=== PATIENT | female | born 1950 | race Hispanic/Latino ===

== ENCOUNTER → 2017-04-17 | Outpatient (CLI) | payer SELFPAY ==
[~2017-04-17] MED LIST: PANTOPRAZOLE SO40 MG PO; SINCALIDE 3 MCG/VIAL INJ ONE
--- NOTE | 2017-04-17 09:57 | Diagnostic Imaging Report ---
PROCEDURE:US GALLBLADDER COMPARISON:None. INDICATIONS:UPPER ABD PAIN TECHNIQUE: Kamara-scale and color doppler transverse and longitudinal images of the right upper quadrant of the abdomen were obtained. FINDINGS: Liver: 12.8 cm in right mid-clavicular line. Diffusely increased parenchymal echogenicity. No masses. Main portal vein: 0.8 cm in caliber. Hepatopedal flow. Gallbladder: 0.2 cm intraluminal echogenic structure without shadowing. No shadowing calculus, wall thickening, or pericholecystic fluid. Common Bile Duct: 0.5 cm in caliber. Sonographic Messina's sign: Reported as negative. Right kidney: 10.8 cm. Normal renal cortical echogenicity. No solid masses or hydronephrosis. Pancreas: The visualized portions are unremarkable. Inferior vena cava: Patent Aorta: Non-aneurysmal Ascites: None in the right upper quadrant of the abdomen. CONCLUSION: 2 mm gallbladder polyp. Followup right upper quadrant ultrasound in one year is suggested to document stability. No cholelithiasis or sonographic evidence of acute cholecystitis. Hepatic steatosis. Dictated by: Wallace Rice M.D. on 04/17/2017 at 9:57 Electronically approved by: Wallace Rice M.D. on 04/17/2017 at 9:57
--- NOTE | 2017-04-17 21:43 | Diagnostic Imaging Report ---
Hepatobiliary Scan with Gallbladder Ejection Fraction Clinical information: \S\\T\ F with upper abdominal pain x 3-4 weeks Report: Following intravenous administration of 6.6 millicuries of Tc-99m mebrofenin, dynamic images of the abdomen in the anterior projection were obtained through 35 minutes. Sincalide (CCK analog) 1.6 micrograms was administered intravenously over 30 minutes with additional imaging for determination of gallbladder ejection fraction. Perfusion to the liver is normal. Extraction of tracer from the blood pool by the liver parenchyma is normal. Tracer is seen promptly within the biliary tract. The gallbladder begins to fill by 28 minutes post-injection of tracer and fills adequately. Tracer is seen in the small bowel by 14 minutes. The gallbladder ejection fraction with administration of sincalide is 97% (normal greater than 40%). Impression: 1. Filling of the gallbladder excludes the diagnosis of acute cystic duct obstruction/acute cholecystitis. 2. Normal gallbladder ejection fraction of 97% does not support the clinical diagnosis of chronic cholecystitis/gallbladder dyskinesia. Signed by: Dr. Luh Bentley M.D. on 04/17/2017 9:39 PM
== END ==
LOC: US 07:36
PROVIDERS: ATTEND Internal Medicine Gastroenterology
DX: R10.10 Upper abdominal pain, unspecified (principal)
CPT/HCPCS: 76705; 78227; A9537; J2805

== ENCOUNTER → 2017-07-24 | Day surgery (SDC) | payer BC ==
[2017-07-23 12:37] LABS: BASOPHILS # (AUTO) 0.1 (0.0-0.1); BASOPHILS % 0.9 % (0.0-1.0); EOSINOPHILS # (AUTO) 0.3 (0.0-0.4); EOSINOPHILS % 3.5 % (0.0-6.0); HEMATOCRIT 38.9 % (34.2-44.1); HEMOGLOBIN 13.1 g/dL (12.0-16.0); LYMPHOCYTES # (AUTO) 2.3 (1.0-3.2); LYMPHOCYTES % 29.1 % (18.0-39.1); MEAN CORPUSCULAR HEMOGLOBIN 30.4 pg (28-32); MEAN CORPUSCULAR HGB CONC 33.7 g/dL (31-35); MEAN CORPUSCULAR VOLUME 90.3 fL (81-99); MONOCYTES # (AUTO) 0.5 (0.2-0.8); MONOCYTES % 6.4 % (4.4-11.3); NEUTROPHILS # (AUTO) 4.7 (2.1-6.9); NEUTROPHILS % 59.8 % (38.7-80.0); PLATELET COUNT 260 x10e3/uL (140-360); RED BLOOD COUNT 4.31 x10e6/uL (3.6-5.1); RED CELL DISTRIBUTION WIDTH 13.2 % (11.7-14.4)
[~2017-07-24] MED LIST changes: +CALCIUM CARBON500 MG PO; +FENTANYL CITRATE/PF 100MCG/2 ML INJ ONE; +LIDOCAINE HCL 2% LOCAL INJ 5 ML SDV VIAL INJ ONE; +MIDAZOLAM HCL 2 MG/2 ML VIAL ONE; +OMEGA-31000 MG PO; +PROPOFOL IV EMULSION 10 MG/ML 50 ML VIAL ONE; -SINCALIDE 3 MCG/VIAL INJ ONE
== END | disposition home or self-care (01) ==
LOC: ENDO 11:24
PROVIDERS: ATTEND Internal Medicine Gastroenterology
DX: Z12.11 Encounter for screening for malignant neoplasm of colon (principal); D12.2 Benign neoplasm of ascending colon; K62.1 Rectal polyp; K31.7 Polyp of stomach and duodenum; K29.70 Gastritis, unspecified, without bleeding; K20.9 Esophagitis, unspecified; K21.9 Gastro-esophageal reflux disease without esophagitis; K44.9 Diaphragmatic hernia without obstruction or gangrene; K57.30 Diverticulosis of large intestine without perforation or abscess without bleeding; K64.8 Other hemorrhoids; M19.90 Unspecified osteoarthritis, unspecified site; R03.0 Elevated blood-pressure reading, without diagnosis of hypertension; Z01.810 Encounter for preprocedural cardiovascular examination; Z01.812 Encounter for preprocedural laboratory examination
CPT/HCPCS: 36415; 43239; 45384; 45385; 85025; 93005; J2001; J2250; 45378